=== PATIENT | male | born 1995 | race Caucasian/White ===

== ENCOUNTER 2017-01-22 14:18 | Emergency (ER) | payer OTHER ==
[~2017-01-22] VITALS: Ht 172.7 cm; Wt 63.5 kg
[2017-01-22 14:24] VITALS: BP 152/78
--- NOTE | 2017-01-22 15:11 | NUR ---
CALLED OUT AT THE LOBBY NO RESPONSE; MARLYN
== END 2017-01-22 15:11 | disposition left against medical advice (07) ==
LOC: MED 14:18
DX: R06.02 Shortness of breath (principal); Z53.21 Procedure and treatment not carried out due to patient leaving prior to being seen by health care provider
CPT/HCPCS: 99281

== ENCOUNTER 2021-01-07 14:10 | Emergency (ER) | payer OTHER ==
[~2021-01-07] VITALS: Ht 172.7 cm; Wt 55.8 kg
[2021-01-07 14:22] VITALS: BP 141/70
--- NOTE | 2021-01-07 14:30 | NUR ---
PATIENT AMBULATED TO BED 11
--- NOTE | 2021-01-07 14:45 | NUR ---
25 y/o M BIB self from home c/o dog bite to Left index and middle finger at approximately 1100. Patient A&Ox4, ambulatory, states he was breaking up a dog fight between two dogs when he was bit. Pt states 4/10, pulsating/constant, non-radiating pain. Denies other pain to extremities. No meds prior to arrival. Denies fever, chills, nausea, vomiting, dizziness, headache. Bed locked in lowest position, side rails x 1. PMH/Sx/Meds: Denies NKA
--- NOTE | 2021-01-07 14:50 | NUR ---
Dr. Garcia is evaluating pt at bedside
[2021-01-07] MEDS ORDERED: AMOX-999 PO (14:51)
[2021-01-07] MEDS ORDERED: IBUP-2213 PO (14:51)
--- NOTE | 2021-01-07 15:09 | NUR ---
PT LAC SOAKED IN BETADINE AND WARM WATER AND PT LAC THEN DRESSED WITH STERI STRIPS RN NOTIFIED
--- NOTE | 2021-01-07 15:17 | NUR ---
Patient discharged with v/s stable. Written and verbal after care instructions given and explained. Patient alert, oriented and verbalized understanding of instructions. Ambulatory with steady gait. All questions addressed prior to discharge. ID band removed. Patient advised to follow up with PMD. Rx of Augmentin, Ibuprofen given. Patient educated on indication of medication including possible reaction and side effects. Opportunity to ask questions provided and answered.
== END 2021-01-07 15:17 | disposition home or self-care (01) ==
LOC: MED 14:19
DX: S61.251A Open bite of left index finger without damage to nail, initial encounter (principal); S61.253A Open bite of left middle finger without damage to nail, initial encounter; Z79.899 Other long term (current) drug therapy; Z89.201 Acquired absence of right upper limb, unspecified level; W54.0XXA Bitten by dog, initial encounter; Y93.89 Activity, other specified; Y92.89 Other specified places as the place of occurrence of the external cause; Y99.8 Other external cause status
CPT/HCPCS: 99283